=== PATIENT | male | born 1950 | race Caucasian/White ===

== ENCOUNTER 2018-07-20 12:28 | Day surgery (SDC) | payer MEDICARE, OTHER, SELFPAY ==
[2017-08-18 14:33] VITALS: BMI 22.2
--- NOTE | 2018-07-20 | CYST_PTH ---
PATIENT: JAZMIN VIZCARRA LOC: [facility] – [place] U#:[id number] AGE/SX: 68/M ROOM: RE07/20/[address]: Dr. Alberto Lindsey DDS : 1950 BED: DIS: 07/20/2018 SPEC #: [id number] RECD: 07/20/18 15:57 STATUS: NIR RHETT #: [id number] KARUNA: 07/20/18 00:[address]: Alberto Lindsey DEPT: SURGICAL PATHOLOGY RECD BY: Krunal Molina ENTERED: 07/21/18 09:02 SP TYPE: Cyst OTHR DR: Dr. Shahram Patrick MD Tissues: Maxilla, NOS Procedures: Surgery Specimen Level III HEADER OPERATION: Excision maxillary cyst PRE-OP DIAGNOSIS: Maxillary cyst TISSUE SUBMITTED: Maxillary cyst wall MICROSCOPIC DIAGNOSIS Maxillary cyst wall, excision: Consistent with benign epithelial cyst. SJ:matthew 07/24/18 COMMENT Cyst is lined by squamous and pseudostratified columnar (respiratory) epithelium. Correlation with clinical, radiologic findings and appropriate follow up are necessary. This case is discussed with Dr. Lindsey on 07/25/18. Case has been reviewed in consultation with Dr. Johnson who concurs with the above diagnosis. IDC:AM MICROSCOPIC DESCRIPTION Slides are reviewed. GROSS DESCRIPTION Received in fixative is one container labeled with the patient's name and designated maxillary cyst wall. The specimen consists of two glistening fragments of light to dark lopes soft tissue ranging in size from 0.8 to 3 cm. The larger fragment is sectioned and submitted along with the smaller fragment in one cassette. / AM:matthew 07/21/18 TC:5 CPT: 44509
[2018-07-20 12:48] VITALS: BP 152/67; PULSE 72; RESP 16; TEMP 36.8; O2SAT 98; BMI 22.6
[2018-07-20 13:27] LABS: Hematocrit 51.4 % (40-54); Hemoglobin 16.9 g/dl (13.0-16.5); Mean Corp Hgb Conc 32.9 g/gl (32-36); Mean Corpuscular Hgb 30.1 pg (27.0-32.0); Mean Corpuscular Volume 91.6 fL (80-94); Mean Platelet Vol. 9.3 fl (6.2-12.0); Platelet Count 211 K/mm3 (150-450); RBC Distribution Width CV 14.2 % (11.6-14.6); RBC Distribution Width SD 47.9 fl (35.1-43.9); Red Blood Count 5.61 M/mm3 (4.6-6.2); White Blood Count 7.5 K/mm3 (4.4-11.0)
[2018-07-20 13:28] LABS: Scan Indicated on CBC? Y/N NO
[2018-07-20] MEDS: Bupivacaine Mpf 0.5% 30 ML VIAL (14:44)
[2018-07-20 15:31] VITALS: BP 125/65; BP 152/67; PULSE 93; RESP 16; TEMP 36.2; O2SAT 97
[2018-07-20 15:45] VITALS: BP 130/77; BP 152/67; PULSE 90; RESP 16; O2SAT 94
--- NOTE | 2018-07-20 15:46 | PCM.OPRPT ---
Problem List (1) Benign neoplasm of maxillofacial bone Status: Acute Report of Operation Date of Procedure: 07/20/18 Pre-Operative Diagnosis: Maxillary lesion Post-Operative Diagnosis: Maxillary cyst Surgery/Procedure Performed:: Excision maxillary cyst Description of Surgical Findings:: Surgical Excision of maxillary lesion with specimen sent to pathology for cultures and histology of the cyst wall. Type of Anesthesia:: General Special Medications: None Specimen's removed: Cyst maxilla Drains: none Estimated Blood Loss (mL): 25 cc Description of Procedure: Patient identified in pre -op holding area. Ris and complication were given and signed consent obtained. Taken to OR and placed in supine position. Anesthesia monitors placed and anesthesia induced. Sterile draping done. 10 cc lidocaine and marcaine given by local infiltration and nerve block injections.A full thickness flap was raided in the anterior maxilla and extended superiorly to the nasal base region. Once the bone was entered mucopurulent exudate was expressed. Cultures obtained. The jerry wall was removed to enter the cystic lesion which extended back to the bilateral maxillary sinuses and upto and into the nasal floor. The entire cystic lesion was removed by sharp and blunt dissection. The bone was thoroughly curreted and then irrigation was done. The soft tissue was re-approximated with 3-0 chromic suture. The oral cavitywas suctioned and the patient awakened and then transferred to recovery in stable condition. The cyst was 4 cmm in greatest dimension. - Complications none
[2018-07-20 16:00] VITALS: BP 124/73; BP 152/67; PULSE 81; RESP 16; O2SAT 93
[2018-07-20] MEDS: Ketorolac 15 MG/ML Vial IV (16:05)
[2018-07-20 16:15] VITALS: BP 124/71; BP 152/67; PULSE 75; RESP 16; TEMP 36.6; O2SAT 93
[2018-07-20] MEDS: MethylPREDNISolone 125 MG/2 ML Vial IV (16:34)
[2018-07-20 17:03] VITALS: BP 136/81; BP 152/67; PULSE 77; RESP 16; TEMP 36.9; O2SAT 94
== END 2018-07-20 17:29 | disposition home or self-care (01) ==
LOC: SDC 12:29 → AC 12:31
PROVIDERS: Referring Provider Dentist Oral and Maxillofacial Surgery; Visit Provider Dentist Oral and Maxillofacial Surgery
PROC: (CPT 21030; principal; 2018-07-20 14:15)
DX: D16.4 Benign neoplasm of bones of skull and face (principal); J32.0 Chronic maxillary sinusitis; J43.1 Panlobular emphysema; F17.200 Nicotine dependence, unspecified, uncomplicated
CPT/HCPCS: 00190; 21030; 85027; 87070; 87075; 87076; 87077; 87186; 87205; 88304; J7120; A4216; J2405

== ENCOUNTER 2018-08-05 18:02 | Emergency (ER) | payer MEDICARE, OTHER, SELFPAY ==
[2018-08-05 18:03] VITALS: BP 145/75; PULSE 79; RESP 19; TEMP 37.1; O2SAT 97; BMI 21.5
--- NOTE | 2018-08-05 18:41 | ED.DCSUM_ITS ---
- ER Visit Summary Date of Service: 08/05/18 Chief Complaint: Suture removal History of Present Illness: The patient is a 68 M presenting secondary to suture removal. Patient had dental surgery done on the of this month. He reports that he had dissolvable sutures in, one poke through his gums and is causing him significant discomfort. Physical Examination: Oral exam shows a suture visible on the patient's right maxillary gumline. No evidence of surrounding infection or drainage. Test Results: None indicated Emergency Department Course and Treatment: Patient presented for suture removal. Suture removal kit with forceps and tissue scissors were used to remove a single suture. Patient had relief of his symptoms immediately. Patient was discharged. Disposition: Discharge Impression: 1. Suture removal by ED physician This note was generated with [employer] dictation software. It may contain incorrect words, spelling, and punctuation that were not noted in review of the chart prior to signing ED Disposition - Plan for ED Patient: Disposition: Home or Assisted Living Chief Complaint: Suture Remv Diagnosis: Visit for suture removal Instructions: ED Wound Check Sutr Remove No Infec Referrals: Shahram Patrick MD [Primary Care Provider] - As Needed
[2018-08-05 18:48] VITALS: BP 132/78; PULSE 84; RESP 16; O2SAT 98
== END 2018-08-05 19:14 | disposition home or self-care (01) ==
LOC: ED 18:57
PROVIDERS: Emergency Provider Emergency Medicine
DX: Z48.02 Encounter for removal of sutures (principal); Z72.0 Tobacco use
CPT/HCPCS: 99282